=== PATIENT | male | born 2000 | race Caucasian/White ===

== ENCOUNTER 2022-04-28 19:54 | Emergency (ER) | payer OTHER ==
[~2022-04-28] VITALS: Ht 165.1 cm; Wt 79.8 kg
[2022-04-28] MEDS ORDERED: AUGMENTIN 500-1 EACH PO (20:04)
== END 2022-04-28 20:20 | disposition home or self-care (01) ==
LOC: ER 20:20
DX: S61.411A Laceration without foreign body of right hand, initial encounter (principal); W45.8XXA Other foreign body or object entering through skin, initial encounter; Y92.89 Other specified places as the place of occurrence of the external cause
CPT/HCPCS: 99282